=== PATIENT | female | born 1965 | race American Indian/Alaskan Native ===

== ENCOUNTER 2022-04-16 17:11 | Emergency (ER) | payer OTHER ==
[2022-04-16 18:53] LABS: Basophils # (Auto) 0.2 K/mm3 (0.0-0.1); Basophils % (Auto) 2.3 % (0.0-1.8); Eosinophils # (Auto) 0.2 K/mm3 (0.0-0.4); Eosinophils % (Auto) 2.8 % (0.0-4.3); Hemoglobin 8.1 gm/dl (10.1-14.3); Lymphocytes # (Auto) 1.5 K/mm3 (1.2-5.4); Lymphocytes % (Auto) 18.8 % (13.4-35.0); Mean Corpuscular HGB Conc 31 % (30-34); Mean Corpuscular Volume 72 fl (79-97); Monocytes # (Auto) 0.7 K/mm3 (0.0-0.8); Monocytes % (Auto) 8.1 % (0.0-7.3); Platelet Count 613 K/mm3 (140-440); Red Blood Count 3.59 M/mm3 (3.65-5.03); Red Cell Distribution Width 19.5 % (13.2-15.2)
[2022-04-16 19:14] LABS: Albumin 3.3 g/dL (3.9-5); Calcium 8.7 mg/dL (8.4-10.2)
[2022-04-17] MEDS ORDERED: oxyCODONE /ACETAMINOPHEN 5-325MG TAB PO ONE (14:42)
--- NOTE | 2022-04-17 14:43 | Emergency Department Report ---
ED General Adult HPI - General Chief complaint: Extremity Injury, Lower Stated complaint: FOOT AND LEG HAS WOUNDS ON THEM Time Seen by Provider: 04/17/22 14:09 Source: patient, RN notes reviewed Mode of arrival: Ambulatory Limitations: No Limitations - History of Present Illness Initial comments: The patient was evaluated in the emergency department for symptoms described in the history of present illness. He/she was evaluated in the context of the g lobal COVID-19 pandemic, which necessitated consideration that the patient might be at risk for infection with the virus that causes COVID-19. Institutional protocols and algorithms that pertain to the evaluation of patients at risk for COVID-19 are in a state of rapid change based on information released by regulatory bodies including the CDC and federal and state organizations. These policies and algorithms were followed during the patient's care in the emergency department. Please note that these policies, procedures and recommendations changed on a rapid basis. This is a pleasant and cooperative 56-year-old female presenting to the department today with a chronic right lower extremity wound. She is currently on metoprolol, and potassium supplementation. She currently denies headache, neck pain, chest pain, abdominal pain, shortness of breath, nausea vomiting diarrhea. This wound is chronic. She is spending time between [place] and [facility] here with family. She does have chronic pain over the right lower extremity wound. She does not have a local primary care doctor. She is unclear as to whether or not she is receiving wound care. She otherwise denies additional injuries and complaints. At this point time, making multiple requests to be discharged from the emergency room -: Gradual, week(s) Location: left, right, lower extremity Severity scale (0 -10): 10 Quality: aching Consistency: constant Improves with: rest Worsens with: movement Associated Symptoms: denies other symptoms - Related Data Previous Rx's Medication Instructions Recorded Last Taken Type Acetaminophen [Non-Aspirin Extra 500 mg PO Q6HR PRN #30 tablet 04/17/22 Unknown Rx Strength] Ibuprofen [Motrin] 400 mg PO Q8H PRN #30 tablet 04/17/22 Unknown Rx Morphine Sulfate [Morphine Sulfate 7.5 mg PO Q6HR PRN #10 tablet 04/17/22 Un known Rx IR] Allergies Allergy/AdvReac Type Severity Reaction Status Date / Time No Known Allergies Allergy Unverified 04/16/22 17:59 ED Review of Systems ROS: Stated complaint: FOOT AND LEG HAS WOUNDS ON THEM Other details as noted in HPI Constitutional: denies: fever Eyes: denies: eye discharge ENT: denies: epistaxis Respiratory: denies: cough Cardiovascular: edema. denies: chest pain Gastrointestinal: denies: abdominal pain, hematemesis, melena, hematochezia Musculoskeletal: myalgia Skin: rash, lesions Neurological: denies: weakness ED Past Medical Hx - Past Medical History Previous Medical History?: Yes Additional medical history: dvt right leg - Medications Home Medications: Home Medications Medication Instructions Recorded Confirmed Last Taken Type Acetaminophen [Non-Aspirin Extra 500 mg PO Q6HR PRN #30 tablet 04/17/22 Unknown Rx Strength] Ibuprofen [Motrin] 400 mg PO Q8H PRN #30 tablet 04/17/22 Unknown Rx Morphine Sulfate [Morphine Sulfate 7.5 mg PO Q6HR PRN #10 tablet 04/17/22 Unknown Rx IR] ED Physical Exam - General Limitations: No Limitations General appearance: alert, in no apparent distress, obese - Head Head exam: Present: atraumatic, normocephalic - Eye Eye exam: Present: normal appearance, EOMI. Absent: nystagmus - ENT ENT exam: Present: normal exam, normal orophraynx, mucous membranes moist, normal external ear exam - Neck Neck exam: Present: normal inspection, full ROM. Absent: tenderness, meningismus - Respiratory Respiratory exam: Present: normal lung sounds bilaterally. Absent: respiratory distress, wheezes, rales, rhonchi, stridor, decreased breath sounds - Cardiovascular Cardiovascular Exam: Present: regular rate, normal rhythm, normal heart sounds. Absent: bradycardia, tachycardia, irregular rhythm, systolic murmur, diastolic murmur, rubs, gallop - GI/Abdominal GI/Abdominal exam: Present: soft. Absent: distended, tenderness, guarding, rebound, rigid, pulsatile mass - Extremities Exam Extremities exam: Present: full ROM, pedal edema, other (There is no long bony tenderness. The muscular compartments are soft. The pelvis is stable.). Absent: normal inspection (Chronic hyperpigmentation discoloration noted to the right lower extremity. There is a large circumferential wounds, on the anterior and medial fib tib region on the right-hand side. There is no pus or streaking. There is clear serous discharge.), tenderness, calf tenderness - Back Exam Back exam: Present: normal inspection. Absent: tenderness, CVA tenderness (R), CVA tenderness (L), paraspinal tenderness, vertebral tenderness - Neurological Exam Neurological exam: Present: alert, oriented X3, other (There is no facial droop. The tongue is midline. EOMI. 5 out of 5 strength in 4 extremities. Sensation is intact to light touch in 4 extremities). Absent: motor sensory deficit - Psychiatric Psychiatric exam: Present: normal affect, normal mood - Skin Skin exam: Present: warm, dry, other (Chronic appearing wounds to right medial anterior lower extremity. No pus or streaking. Clear discharge.). Absent: rash, diaphoretic, erythema, urticaria, vesicles, pallor, abrasion, ecchymosis ED Course Vital Signs 04/16/22 04/17/22 04/17/22 17:57 12:54 14:28 Temperature 98.4 F 97.5 F L Pulse Rate 85 101 H 100 H Respiratory 18 20 18 Rate Blood Pressure 163/65 177/79 145/70 [Left] O2 Sat by Pulse 99 100 96 Oximetry 04/17/22 04/17/22 16:50 18:40 Temperature Pulse Rate 99 H 104 H Respiratory 18 18 Rate Blood Pressure 165/89 181/76 [Left] O2 Sat by Pulse 96 94 Oximetry ED Medical Decision Making - Lab Data Result diagrams: 04/16/22 18:31 04/16/22 18:31 Vital Signs 04/16/22 04/17/22 17:57 12:54 Temperature 98.4 F 97.5 F L Pulse Rate 85 101 H Respiratory 18 20 Rate Blood Pressure 163/65 177/79 [Left] O2 Sat by Pulse 99 100 Oximetry Lab Results 04/16/22 04/16/22 Range/Units 18:31 18:31 WBC 8.1 (4.5-11.0) K/mm3 RBC 3.59 L (3.65-5.03) M/mm3 Hgb 8.1 L (10.1-14.3) gm/dl Hct 26.0 L (30.3-42.9) % MCV 72 L (79-97) fl MCH 23 L (28-32) pg MCHC 31 (30-34) % RDW 19.5 H (13.2-15.2) % Plt Count 613 H (140-440) K/mm3 Lymph % (Auto) 18.8 (13.4-35.0) % [place] % (Auto) 8.1 H (0.0-7.3) % Eos % (Auto) 2.8 (0.0-4.3) % Baso % (Auto) 2.3 H (0.0-1.8) % Lymph # (Auto) 1.5 (1.2-5.4) K/mm3 [place] # (Auto) 0.7 (0.0-0.8) K/mm3 Eos # (Auto) 0.2 (0.0-0.4) K/mm3 Baso # (Auto) 0.2 H (0.0-0.1) K/mm3 Seg Neutrophils % 68.0 (40.0-70.0) % Seg Neutrophils # 5.5 (1.8-7.7) K/mm3 Sodium 144 (137-145) mmol/L Potassium 4.1 (3.6-5.0) mmol/L Chloride 104.4 (98-107) mmol/L Carbon Dioxide 28 (22-30) mmol/L Anion Gap 16 mmol/L BUN 8 (7-17) mg/dL Creatinine 1.1 (0.6-1.2) mg/dL Estimated GFR 52 ml/min BUN/Creatinine Ratio 7 % Glucose 104 H (65-100) mg/dL Calcium 8.7 (8.4-10.2) mg/dL Total Bilirubin 0.20 (0.1-1.2) mg/dL AST 10 (5-40) units/L ALT 7 (7-56) units/L Alkaline Phosphatase 74 (35-129) units/L Total Protein 7.7 (6.3-8.2) g/dL Albumin 3.3 L (3.9-5) g/dL Albumin/Globulin Ratio 0.8 % - Medical Decision Making Differential diagnosis, including but not limited to: Chronic wound, lymphedema Assessment and plan: 56-year-old female presenting with chronic right lower extremity wound. She is afebrile, with reassuring vital signs, and the wound does not appear to be superinfected. Obtain case management consultation and input. Unfortunately, since patient does not currently have a primary care doctor, home wound care not feasible. Therefore, have instructed patient to follow-up with an outpatient primary care doctor. She may also elect to follow-up at our wound care center, however, it is unclear if the wound care center will accept the patient's concerns. The patient does not appear to have an emergent medical condition present at this time. Discharged with wet-to-dry dressings, and instructions on how to supply wet-to-dry dressings. Extensive and thorough discussion had with patient and family member at the bedside, regarding need to closely follow-up with outpatient primary care, wound physician, and return precautions. Critical care attestation.: If time is entered above; I have spent that time in minutes in the direct care of this critically ill patient, excluding procedure time. ED Disposition Clinical Impression: Chronic wound of extremity Disposition: HOME / SELF CARE / HOMELESS Is pt being admited?: No Does the pt Need Aspirin: No Condition: Good Additional Instructions: Please apply wet-to-dry dressings as instructed. Take the pain medications as directed. Avoid strenuous physical activity. Follow-up as soon as possible with an outpatient primary care doctor. Patient may elect to follow-up in our wound care center, however, she may wish to clarify whether or not the wound care center is covered under her current insurance plan. She may also contact her private insurance, to determine what wound care centers are in her network. Please continue current outpatient medications. Exercise caution when taking the morphine sulfate, this medication can be addictive, habit-forming, and can be sedating. We recommend follow-up with a primary care doctor soon as possible. Recommend follow-up with the wound care center within the next 7 days. Please return to the emergency room right away with new pain, worsened pain, migration of pain, projectile vomiting, change in mental status, confusion, inability tolerate liquid feeds, new, worsened or different symptoms not present on the initial emergency room evaluation Prescriptions: Morphine Sulfate [Morphine Sulfate IR] 7.5 mg PO Q6HR PRN #10 tablet PRN Reason: Pain , Severe (7-10) Ibuprofen [Motrin] 400 mg PO Q8H PRN #30 tablet PRN Reason: Pain , Severe (7-10) Acetaminophen [Non-Aspirin Extra Strength] 500 mg PO Q6HR PRN #30 tablet PRN Reason: Pain , Severe (7-10) Referrals: BOONE STERN MD [Staff Physician] - 3-5 Days [facility] [Provider Group] - 3-5 Days [facility] [Outside] - 3-5 Days Forms: Work/School Release Form
[2022-04-17] MEDS ORDERED: oxyCODONE /ACETAMINOPHEN 5-325MG TAB PO SCH (18:00)
[2022-04-17 18:41] VITALS: BP 181/76
[2022-04-17] MEDS ORDERED: SODIUM CHLORIDE IRRI 500 ML 500 ML IR ONE (19:14)
== END 2022-04-17 19:47 | disposition home or self-care (01) ==
LOC: ED 17:11
DX: S81.801A Unspecified open wound, right lower leg, initial encounter (principal); G89.29 Other chronic pain; Z79.899 Other long term (current) drug therapy; X58.XXXA Exposure to other specified factors, initial encounter; Y93.89 Activity, other specified; Y92.89 Other specified places as the place of occurrence of the external cause; Y99.8 Other external cause status
CPT/HCPCS: 36415; 80053; 85025; 99283